=== PATIENT | female | born 1980 | race Caucasian/White ===

== ENCOUNTER 2021-12-23 23:27 | Emergency (ER) | payer OTHER ==
[2021-12-23] MEDS ORDERED: ONDA4TAB11 PO (23:54)
--- NOTE | 2021-12-23 23:55 | ED GI ---
General Chief Complaint: Abdominal/GI Problems Stated Complaint: VOMITTING; DIARRHEA; LIGHT HEADED Nursing Triage Note: Pt states she has been vomiting for a few hours then started having diarrhea around 2300. Pt states she felt like she was close to passing out while at home Source of Information: Patient Exam Limitations: No Limitations History of Present Illness Date Seen by Provider: Dec 23, 2021 Time Seen by Provider: 23:30 Initial Comments 41-year-old female with no significant past medical history coming in due to roughly 5 to 6 hours of nonbloody nonbilious vomiting and nonbloody diarrhea. Multiple of her kids have similar issues in her father had similar issues a couple days ago. No significant abdominal pain, fever, cough, shortness of breath, dysuria, or any other concerns. Did take a Zofran which helped. She says her blood pressure typically is in the 90s systolic at baseline. She says while she was having the diarrhea she felt lightheaded so she wanted to be evaluated. Allergies and Home Medications Allergies Coded Allergies: No Known Drug Allergies (Unverified , 12/23/21) Patient Home Medication List Home Medication List Reviewed: Yes Review of Systems Review of Systems Constitutional: No chills, No fever EENTM: No Blurred Vision Respiratory: Denies Cough Cardiovascular: Denies Chest Pain Gastrointestinal: Denies Abdominal Pain; Diarrhea, Nausea, Vomiting Genitourinary: No Symptoms Reported Musculoskeletal: no symptoms reported Skin: no symptoms reported Psychiatric/Neurological: No Symptoms Reported Endocrine: No Symptoms Reported Hematologic/Lymphatic: No Symptoms Reported All Other Systems Reviewed Negative Unless Noted: Yes Past Gqjemza-Cippek-Voaoup Hx Patient Social History Tobacco Use?: No Use of E-Cig and/or Vaping dev: No Substance use?: No Alcohol Use?: No Pt feels they are or have been: No Past Medical History Surgeries: No Physical Exam Vital Signs Vital Signs - First Documented 12/23/21 23:33 Temp 36.2 Pulse 92 Resp 18 B/P (MAP) 107/52 (70) Pulse Ox 99 O2 Delivery Room Air Capillary Refill : Less Than 3 Seconds Height/Weight/BMI Height: '" Weight: lbs. oz. kg; BMI Method: General Appearance: WD/WN, no apparent distress HEENT: PERRL/EOMI, normal ENT inspection, pharynx normal Neck: non-tender, full range of motion, supple, normal inspection Respiratory: chest non-tender, lungs clear, normal breath sounds, no respiratory distress, no accessory muscle use Cardiovascular: regular rate, rhythm, no edema, no murmur Gastrointestinal: normal bowel sounds, non tender, soft; No distended, No guarding, No rebound Extremities: normal range of motion, non-tender, normal inspection, no pedal edema, no calf tenderness, normal capillary refill Back: normal inspection, no CVA tenderness Neurologic/Psychiatric: no motor/sensory deficits, alert, normal mood/affect Skin: normal color, warm/dry Lymphatic: no adenopathy Progress/Results/Core Measures Results/Orders Vital Signs/I&O 12/23/21 23:33 Temp 36.2 Pulse 92 Resp 18 B/P (MAP) 107/52 (70) Pulse Ox 99 O2 Delivery Room Air Blood Pressure Mean: 70 Progress Progress Note : Progress Note 41-year-old female with above history coming in due to vomiting and diarrhea. ABCs were intact and vitals were stable on presentation. Specifically her blood pressure is around her baseline and heart rate is in the 80s. Normal capillary refill and moist mucous membranes. Clinically she appears well-hydrated. She is actively drinking Gatorade while I am examining her. Abdomen is soft and nontender. It does sound like this is infectious etiology with multiple family members having a similar GI illness. He is overall well-appearing and I believe stable for discharge with outpatient follow-up. She was sent home with strict return precautions Departure Impression Primary Impression: Vomiting and diarrhea Disposition: 01 HOME, SELF-CARE Condition: Stable Departure-Patient Inst. Decision time for Depature: 23:52 Referrals: NO,LOCAL PHYSICIAN (PCP/Family) Primary Care Physician Patient Instructions: Nausea and Vomiting, Adult ED, Viral Gastroenteritis Add. Discharge Instructions: I recommend you taking roughly 4 mg of Zofran every 6 hours. If you vomit wait about 20 minutes before you try to drink a small amount of fluids again. If you keep those down and he can continue to increase them. Do not worry about eating for the next day or so, just focus on keeping more fluids down. If you begin having severe abdominal pain that will not go away, are continuing to have unrelenting vomiting and diarrhea with inability to drink any fluids, or you have any concerns and please come back to the ER Scripts Ondansetron (Ondansetron Odt) 4 Mg Tab.rapdis 4 MG PO Q6H PRN for NAUSEA/VOMITING-1ST LINE for 5 Days, #20 TAB Prov: PRIMO PARK MD 12/23/21 PRIMO PARK MD Dec 23, 2021 23:55
[2021-12-23 23:56] VITALS: BP 107/52
== END 2021-12-23 23:58 | disposition home or self-care (01) ==
LOC: ER FS 23:31
DX: R11.10 Vomiting, unspecified (principal); R19.7 Diarrhea, unspecified
CPT/HCPCS: 99281